=== PATIENT | female | born 1980 | race African-American/Black ===

== ENCOUNTER 2019-10-08 20:29 | Emergency (ER) | payer SELFPAY ==
[~2019-10-08] VITALS: Ht 165.1 cm; Wt 86.7 kg
[~2019-10-08 20:29] MED LIST: CHOL100011 PO
[2019-10-08 20:30] VITALS: BP 165/96
[2019-10-08 21:10] LABS: CULTURE INDICATED? YES; MICROSCOPIC AUTO
[2019-10-08 21:46] LABS: ANION GAP 6 mmol/L (5-15); CALCIUM 9.4 mg/dL (8.5-10.1); CHLORIDE 105 mmol/L (98-107)
[2019-10-08 21:53] LABS: ALANINE AMINOTRANSFERASE 24 U/L (12-78); ALKALINE PHOSPHATASE 53 U/L (45-117); BILIRUBIN,TOTAL 0.4 mg/dL (0.2-1.0); CREATININE 0.89 mg/dL (0.55-1.02); TOTAL PROTEIN 8.4 g/dL (6.4-8.2)
--- NOTE | 2019-10-08 22:25 | NUR ---
pt called to room from lobby
[2019-10-08 22:48] LABS: MEAN CORPUSCULAR HEMOGLOBIN 28.1 pg (27.0-34.8); MEAN CORPUSCULAR HGB CONC 31.7 g/dL (32.4-35.8); MEAN CORPUSCULAR VOLUME 88.6 fL (80-100); MEAN PLATELET VOLUME 8.5 fL (7.4-10.4); PLATELET COUNT 293 x10^3/uL (130-400); RED BLOOD COUNT 5.24 x10^6/uL (3.82-5.3); RED CELL DISTRIBUTION WIDTH 15.7 % (9.6-15.2)
[2019-10-08 22:56] LABS: BASOPHILS # (AUTO) 0.04 x10^3/uL (0-0.1); BASOPHILS % (AUTO) 1 % (0-1); EOSINOPHILS # (AUTO) 0.02 x10^3/uL (0-0.4); EOSINOPHILS % (AUTO) 0 % (1-7); LYMPHOCYTES # (AUTO) 2.06 x10^3/uL (1-3.4); LYMPHOCYTES % (AUTO) 26 % (22-44); MD SCAN; MONOCYTES # (AUTO) 0.73 x10^3/uL (0.2-0.8); MONOCYTES % (AUTO) 9 % (2-9); NEUTROPHILS # (AUTO) 5.09 x10^3/uL (1.8-6.8); NEUTROPHILS % (AUTO) 64 % (42-75)
== END 2019-10-08 23:09 | disposition home or self-care (01) ==
LOC: ED 22:45
DX: J42 Unspecified chronic bronchitis (principal); N76.0 Acute vaginitis; F17.210 Nicotine dependence, cigarettes, uncomplicated
CPT/HCPCS: 36415; 71046; 80053; 81001; 84703; 85025; 87077; 87086; 87186; 99284

== ENCOUNTER 2019-11-19 01:36 | Emergency (ER) | payer MEDICAID ==
[~2019-11-19] VITALS: Ht 165.1 cm; Wt 86.7 kg
[2019-11-19 01:38] VITALS: BP 153/92
[2019-11-19] MEDS ORDERED: IBUPROFEN 600 MG TABLET ONE (01:50)
[2019-11-19] MEDS ORDERED: IBUPROFEN 600 MG TABLET PO ONE (02:00)
== END 2019-11-19 02:11 | disposition home or self-care (01) ==
LOC: ED 02:00
DX: K08.89 Other specified disorders of teeth and supporting structures (principal); F17.210 Nicotine dependence, cigarettes, uncomplicated
CPT/HCPCS: 99283; 99406

== ENCOUNTER 2019-12-21 16:24 | Emergency (ER) | payer MEDICAID ==
[~2019-12-21] VITALS: Ht 165.1 cm; Wt 86.0 kg
[2019-12-21 16:25] VITALS: BP 151/113
[2019-12-21] MEDS ORDERED: IBUPROFEN 200 MG TABLET ONE (17:39)
[2019-12-21] MEDS ORDERED: IBUPROFEN 600 MG TABLET PO ONE (18:00)
== END 2019-12-21 18:07 | disposition home or self-care (01) ==
LOC: ED 17:40
DX: K04.7 Periapical abscess without sinus (principal); F17.200 Nicotine dependence, unspecified, uncomplicated
CPT/HCPCS: 99283

== ENCOUNTER 2021-05-05 10:08 | Emergency (ER) | payer MEDICAID ==
[~2021-05-05] VITALS: Ht 165.1 cm; Wt 78.9 kg
--- NOTE | 2021-05-05 11:14 | NUR ---
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
--- NOTE | 2021-05-05 11:18 | NUR ---
PT C/O VAGINAL DISCHARGE ACCOMPANIED BY ABDOMINAL CRAMPING
[2021-05-05 12:11] LABS: MICROSCOPIC NOT IND
[2021-05-05 12:12] LABS: HCG UR SG 1.025 (1.003-1.030)
--- NOTE | 2021-05-05 12:16 | NUR ---
AWAITING PELVIC EXAM. UOB TO BATHROOM WITHOUT ASSISTANCE
[2021-05-05 13:02] VITALS: BP 138/93
--- NOTE | 2021-05-05 13:02 | NUR ---
CONTINUES TO AWAIT PELVIC EXAM. VS UPDATED
--- NOTE | 2021-05-05 13:28 | NUR ---
MD AT BEDSIDE PERFORMING PELVIC EXAM
[2021-05-05] MEDS ORDERED: CEFTRIAXONE 1,000 MG IM ONE (14:00)
[2021-05-05] MEDS ORDERED: AZITHROMYCIN 500 MG TABLET PO ONE (14:00)
[2021-05-05] MEDS ORDERED: CEFAZOLIN 1,000 MG ONE (14:01)
[2021-05-05] MEDS ORDERED: AZITHROMYCIN 500 MG TABLET ONE (14:01)
--- NOTE | 2021-05-05 14:36 | NUR ---
PT SITTING IN CHAIR AWAITING DISCHARGE PAPERS. PROVIDED SNACK. NO DISTRESS
[2021-05-05 14:40] LABS: CLUE CELLS NONE SEEN (NONE SEEN)
[2021-05-05 14:41] LABS: WET PREP WBCS MODERATE (FEW)
== END 2021-05-05 14:55 | disposition home or self-care (01) ==
LOC: ED 11:47
DX: N89.8 Other specified noninflammatory disorders of vagina (principal); A56.09 Other chlamydial infection of lower genitourinary tract
CPT/HCPCS: 81003; 81025; 87210; 87491; 87591; 87808; 96372; 99283; J0696